=== PATIENT | female | born 1985 | race Caucasian/White ===

== ENCOUNTER 2021-05-16 12:31 | Outpatient (CLI) | payer OTHER | END 2021-05-16 14:57 | disposition home or self-care (01) | LOC: LAB 12:31 | PROVIDERS: ATTEND Emergency Medicine Pediatric Emergency Medicine | DX: Z03.818 Encounter for observation for suspected exposure to other biological agents ruled out (principal) ==

== ENCOUNTER 2021-05-23 09:05 | Outpatient (CLI) | payer OTHER | END 2021-05-23 09:07 | disposition home or self-care (01) | LOC: PPH VACUNA 09:05 | PROVIDERS: ATTEND Emergency Medicine Pediatric Emergency Medicine | DX: Z23 Encounter for immunization (principal) ==

== ENCOUNTER → 2021-05-23 11:01 | Outpatient (CLI) | payer OTHER | END | disposition home or self-care (01) | LOC: PPH VACUNA 11:01 | PROVIDERS: ATTEND Emergency Medicine Pediatric Emergency Medicine | DX: Z23 Encounter for immunization (principal) ==

== ENCOUNTER 2021-08-12 15:47 | Outpatient (CLI) | payer OTHER | END 2021-08-12 15:58 | disposition home or self-care (01) | LOC: LAB 15:47 | PROVIDERS: ATTEND Preventive Medicine Occupational Medicine | DX: Z20.828 Contact with and (suspected) exposure to other viral communicable diseases (principal) ==

== ENCOUNTER 2021-08-20 14:30 | Outpatient (CLI) | payer OTHER | END 2021-08-20 14:46 | disposition home or self-care (01) | LOC: LAB 14:30 | DX: Z20.828 Contact with and (suspected) exposure to other viral communicable diseases (principal) ==

== ENCOUNTER 2021-11-19 08:41 | Outpatient (CLI) | payer OTHER | END 2021-11-19 11:57 | disposition home or self-care (01) | LOC: LAB 08:41 | PROVIDERS: ATTEND Obstetrics & Gynecology | DX: Z34.03 Encounter for supervision of normal first pregnancy, third trimester (principal) ==

== ENCOUNTER → 2021-12-04 10:29 | Outpatient (CLI) | payer OTHER | END | disposition home or self-care (01) | LOC: LAB 10:29 | PROVIDERS: ATTEND Obstetrics & Gynecology | DX: Z3A.16 16 weeks gestation of pregnancy (principal) ==

== ENCOUNTER 2021-12-11 12:57 | Outpatient (CLI) | payer OTHER | END 2021-12-11 16:37 | disposition home or self-care (01) | LOC: PRENATAL 12:57 | PROVIDERS: ATTEND Obstetrics & Gynecology Maternal & Fetal Medicine | DX: O35.0XX0 Maternal care for (suspected) central nervous system malformation in fetus, not applicable or unspecified (principal); Z3A.19 19 weeks gestation of pregnancy; O35.3XX0 Maternal care for (suspected) damage to fetus from viral disease in mother, not applicable or unspecified; O09.529 Supervision of elderly multigravida, unspecified trimester ==

== ENCOUNTER 2021-12-31 15:16 | Outpatient (CLI) | payer OTHER | END 2021-12-31 15:37 | disposition home or self-care (01) | LOC: LAB 15:16 | PROVIDERS: ATTEND Emergency Medicine Pediatric Emergency Medicine | DX: Z20.828 Contact with and (suspected) exposure to other viral communicable diseases (principal) ==

== ENCOUNTER 2022-07-16 10:45 | Outpatient (CLI) | payer OTHER | END 2022-07-16 10:55 | disposition home or self-care (01) | LOC: PPH VACUNA 10:45 | PROVIDERS: ATTEND Emergency Medicine Pediatric Emergency Medicine | DX: Z23 Encounter for immunization (principal) ==

== ENCOUNTER 2022-07-30 13:39 | Outpatient (CLI) | payer OTHER | END 2022-07-30 13:43 | disposition home or self-care (01) | LOC: LAB 13:39 | PROVIDERS: ATTEND General Practice | DX: R05.9 Cough, unspecified (principal); R06.02 Shortness of breath; R50.9 Fever, unspecified; Z20.822 Contact with and (suspected) exposure to COVID-19 ==

== ENCOUNTER 2023-09-08 11:17 | Outpatient (CLI) | payer OTHER ==
[2023-09-08 14:07] LABS: MYCOPLASMA PNEUMONIAE IGM NON REACTIVE (NO REACTIVE)
== END 2023-09-08 13:10 | disposition home or self-care (01) ==
LOC: LAB 11:17
DX: U07.1 COVID-19 (principal)

== ENCOUNTER 2023-10-20 10:00 | Outpatient (CLI) | payer OTHER | END 2023-10-20 10:10 | disposition home or self-care (01) | LOC: PPH VACUNA 10:00 | PROVIDERS: ATTEND Emergency Medicine Pediatric Emergency Medicine | DX: Z23 Encounter for immunization (principal) ==

== ENCOUNTER 2024-02-10 07:51 | Outpatient (CLI) | payer OTHER | END 2024-02-10 13:30 | disposition home or self-care (01) | LOC: LAB 07:51 | DX: Z20.828 Contact with and (suspected) exposure to other viral communicable diseases (principal); J11.1 Influenza due to unidentified influenza virus with other respiratory manifestations ==

== ENCOUNTER 2024-04-21 08:25 | Emergency (ER) | payer OTHER ==
[~2024-04-21] VITALS: Ht 149.9 cm; Wt 53.5 kg
[2024-04-21] MEDS ORDERED: CETIRIZINE HCL 5 MG/5 ML ML PO ONE (09:00)
[2024-04-21] MEDS ORDERED: DEXAMETHASONE SODIUM PHOSPHATE 4 MG/ML VIAL IM ONE (09:00)
[2024-04-21] MEDS ORDERED: DEXAMETHASONE SODIUM PHOSPHATE 4 MG/ML VIAL ONE (09:05)
[2024-04-21] MEDS ORDERED: CETIRIZINE HCL 5MG/5ML BLIST.PACK PO ONE (09:06)
[2024-04-21 09:49] LABS: HEMATOCRIT 37.7 % (36.0-45.00); HEMOGLOBIN 12.8 g/dL (12.0-15.00); MEAN CELL VOLUME 90.5 fL (80.00-100.00); MEAN CORPUSCULAR HEMOGLOBIN 30.8 pg (27.00-32.0); PLATELET COUNT 261 K/uL (150-450); RED BLOOD COUNT 4.16 M/uL (4.00-6.00); RED CELL DISTRIBUTION WIDTH 13.4 % (11.5-14.5)
[2024-04-21] MEDS ORDERED: TUSNEL LIQUID178 ML PO (10:51)
[2024-04-21] MEDS ORDERED: ZITHROMAX500 MG PO (10:51)
== END 2024-04-21 10:59 | disposition home or self-care (01) ==
LOC: ER 08:27
PROVIDERS: General Practice
DX: B34.9 Viral infection, unspecified (principal); Z20.822 Contact with and (suspected) exposure to COVID-19

== ENCOUNTER 2024-06-07 13:25 | Outpatient (CLI) | payer OTHER ==
[~2024-06-07 13:25] MED LIST: TUSNEL LIQUID178 ML PO; ZITHROMAX500 MG PO
== END 2024-06-07 13:46 | disposition home or self-care (01) ==
LOC: MAMO-SONO 13:25
PROVIDERS: ATTEND Surgery
DX: N60.11 Diffuse cystic mastopathy of right breast (principal); N60.12 Diffuse cystic mastopathy of left breast

== ENCOUNTER 2024-07-07 16:00 | Outpatient (CLI) | payer OTHER | END 2024-07-07 16:10 | disposition home or self-care (01) | LOC: PPH VACUNA 16:00 | PROVIDERS: ATTEND Emergency Medicine Pediatric Emergency Medicine | DX: Z23 Encounter for immunization (principal) ==

== ENCOUNTER → 2024-12-22 13:18 | Outpatient (CLI) | payer OTHER | END | disposition home or self-care (01) | LOC: LAB 12-21 14:25 | DX: A64 Unspecified sexually transmitted disease (principal); B19.9 Unspecified viral hepatitis without hepatic coma ==

== ENCOUNTER → 2025-03-13 06:55 | Outpatient (CLI) | payer OTHER ==
[2025-03-13 07:43] LABS: BASO % 0.4 % (0.1-1.2); EOS # 0.10 (0.04-0.54); EOS % 1.8 % (0.7-7.0); LYMPH # 2.30 (1.18-3.74); LYMPH % 41.7 % (19.3-53.1); MEAN PLATELET VOLUME 10.00 fl (9.4-12.4); MONO # 0.39 (0.24-0.82); MONO % 7.1 % (4.7-12.5); NEUT # 2.70 (1.56-6.13); NEUT % 48.8 % (34.0-71.1); RED CELL DISTRIBUTION WIDTH 12.2 % (11.6-14.4)
[2025-03-13 07:54] LABS: URINE APPEARANCE Clear; URINE BILIRRUBIN Negative (NEGATIVE); URINE BLOOD Negative; URINE COLOR Yellow; URINE GLUCOSE Negative (NEGATIVE); URINE KETONE Negative (NEGATIVE); URINE LEUKOCYTE Negative; URINE NITRATE Negative; URINE PROTEIN Negative (NEGATIVE); URINE UROBILINOGEN 0.2 E.U./dl
[2025-03-13 07:58] LABS: URINE BACTERIA 157.1 uL (0.0-1933); URINE EPITHELIAL CELLS 22.8 uL (0.0-38.8); URINE RBC 10.1 uL (0.0-20.8); URINE WBC 1.8 uL (0.0-23.2)
[2025-03-13 08:03] LABS: URINE CAST 0.00 uL (0.0-1.40)
[2025-03-13 09:01] LABS: ALT/SGPT 26.0 U/L (12-78); AST/SGOT 16.0 U/L (15-37); BILIRUBIN TOTAL 0.54 mg/dL (0.3-1.2); BUN CREA RATIO 24.0 (7.0-25.0); CHOL HDL RATIO 2.8 (0-5.0); CREATININE SERUM 0.59 mg/dL (0.55-1.02); FREE TRIODOTIRONINE 2.54 pg/ml (2.18-3.98); GFR 112.89; GLOBULINA 3.1 G/DL (2.4-3.5); GLUCOSE FASTING 83.0 mg/dL (65-100); HDL 63.0 mg/dl (40-60); LDL 100.0 mg/dl (0-130); OSMOLALITY SERUM 285.0 MOSM/KG (275-295); TSH 1.9 uIU/mL (0.358-3.74); VLDL 15.0 (0-39)
[2025-03-13 11:49] LABS: VITAMIN D3 25 HYDROXY 18.68 ng/ml (30-120)
[2025-03-14 11:12] LABS: ESTRADIOL SERUM 171.0 pg/mL (.)
== END | disposition home or self-care (01) ==
LOC: LAB 03-08 15:34
DX: D69.6 Thrombocytopenia, unspecified (principal); E86.0 Dehydration; E61.1 Iron deficiency; R94.6 Abnormal results of thyroid function studies; N39.0 Urinary tract infection, site not specified; E78.00 Pure hypercholesterolemia, unspecified; E88.819 Insulin resistance, unspecified; R73.9 Hyperglycemia, unspecified; E55.9 Vitamin D deficiency, unspecified; E28.1 Androgen excess; N92.4 Excessive bleeding in the premenopausal period; N95.9 Unspecified menopausal and perimenopausal disorder; D51.9 Vitamin B12 deficiency anemia, unspecified

== ENCOUNTER 2025-06-15 09:49 | Outpatient (CLI) | payer OTHER | END 2025-06-15 09:53 | disposition home or self-care (01) | LOC: MAMO-SONO 09:49 | PROVIDERS: ATTEND Surgery | DX: N60.11 Diffuse cystic mastopathy of right breast (principal); N60.12 Diffuse cystic mastopathy of left breast ==